=== PATIENT | female | born 1995 | race Caucasian/White ===

== ENCOUNTER 2016-12-08 18:55 | Outpatient (CLI) | payer OTHER ==
[~2016-12-08] VITALS: Ht 160 cm; Wt 51.4 kg
[~2016-12-08 18:55] MED LIST: IBUP-1050 PO; LEVO50TA PO
[2016-12-08] MEDS ORDERED: PRENTAB26 PO (19:48)
[2016-12-08 20:02] LABS: URINE APPEARANCE CLEAR (CLEAR); URINE BILIRUBIN NEG (NEG); URINE COLOR YELLOW; URINE EPITHELIAL CELL AUTO >30 /lpf (0-5); URINE NITRITE NEG (NEG); URINE SPECIFIC GRAVITY 1.018 (1.000-1.030); UROBILINOGEN NEG (NEG); ZZUR CULT IF INDIC CLEAN CATCH YES
[2016-12-08 20:05] LABS: MANUAL MICROSCOPIC REQUIRED? NO; REVIEW REQ? NO
--- NOTE | 2016-12-08 20:17 | DIAGNOSTIC IMAGING REPORT ---
LIMITED ULTRASOUND CLINICAL HISTORY: . Pelvic pressure. Evaluate cervical length COMPARISON STUDY: No previous studies for comparison. FINDINGS: A single live intrauterine gestation was visualized. The fetus in cephalic presentation. The heart rate is 142. The femur measured 19 mm corresponding assessment a postmenstrual age of 15 weeks and 5 days. The BPD measured 32 mm corresponding to an estimated postmenstrual age of 16 weeks and 1 day. The placenta was anterior and appeared within normal limits. The maternal cervix measured 4.2 cm with trace funneling. IMPRESSION: 1. Single live fetus in cephalic presentation. The estimated postmenstrual age is 15 weeks 6 days +/- 8 days 2. Anterior placenta 3. The maternal cervical length was 4.2 cm. There was trace funneling. Electronically signed by: Clint Nair M.D. 12/08/2016 8:16 PM Dictated Date/Time: 12/08/2016 8:13 PM
[2016-12-08 20:26] VITALS: Ht 160 cm; Wt 51.4 kg
[2016-12-08] MEDS ORDERED: NITR1CAP16 PO (20:40)
--- NOTE | 2016-12-08 20:40 | Discharge Instructions ---
Discharge Instructions Admission Reason for Admission: Check Cramping Discharge Discharge Diagnosis / Problem: pelvic pressure Discharge Goals Goal(s): Continuing OB care Activity Recommendations Activity Limitations: resume your previous activity ACTIVITY RECOMMENDATIONS: See Labor Sheet. SPECIAL CARE INSTRUCTIONS: Call Doctor if: * Regular contractions every 5 minutes or greater than contractions in one hour. * Bleeding * Water breaks or is leaking * Decreased movement * Fever >100.4 degrees F * Pain not relieved by routine measures or pain medication ordered. FOLLOW UP VISIT: Return to Labor and Delivery on for /call for appointment time . Follow-up Visit with: When: . Current Hospital Diet Patient's current hospital diet: Discharge Diet Recommended Diet: Regular Diet Pending Studies Studies pending at discharge: no Medical Emergencies . Who to Call and When: Medical Emergencies: If at any time you feel your situation is an emergency, please call 911 immediately. . Non-Emergent Contact Non-Emergency issues call your: Specialist . . "Provider Documentation" section prepared by Andrea Ni. VTE Core Measure Inpt VTE Proph given/why not?: Treatment not indicated
[2017-05-08] MEDS ORDERED: MTR600X PO (06:49)
== END 2016-12-08 21:10 | disposition home or self-care (01) ==
LOC: C.LD 18:55 → C.OPB 18:55
PROVIDERS: ATTEND Obstetrics & Gynecology
DX: O26.892 Other specified pregnancy related conditions, second trimester (principal); R10.2 Pelvic and perineal pain; Z3A.19 19 weeks gestation of pregnancy

== ENCOUNTER 2017-05-06 03:01 | Inpatient (IN) | payer OTHER ==
[~2017-05-06] VITALS: Ht 160 cm; Wt 66.7 kg
[~2017-05-06 03:01] MED LIST changes: -IBUP-1050 PO; -LEVO50TA PO; +PRENTAB26 PO
[2017-05-06 04:03] VITALS: Ht 160 cm; Wt 66.7 kg
[2017-05-06] MEDS ORDERED: LACTATED RINGER'S 1000ML 1,000 ML IV PRN ×2 (04:05→04:06)
[2017-05-06] MEDS ORDERED: LACTATED RINGER'S 1000ML 1,000 ML IV SCH ×2 (04:05→04:06)
[2017-05-06] MEDS ORDERED: CALCIUM CARBONATE 500 MG CHEWABLE PO PRN (04:15)
--- NOTE | 2017-05-06 04:22 | Progress Note ---
Progress Note Date of Service May 06, 2017. Progress Note Admit Note 21 W F P1001 at 37.1 wks with SROM clear fluid this AM. Patient is planning TOLAC. First was done for breech presentation. Has history of Herpes and is on Valtrex. No lesions now. Has been followed for IUGR by MFM. Patient presents to L&D grossly rupturede with clear fluid and elisa. Cervix is now 1-2/85/-1/vertex. GBS is negative. No bleeding. FHT Cat 1. Will admit in labor for TOLAC.
[2017-05-06 05:03] LABS: MEAN CELL VOLUME 86.6 fL (80-100); MEAN CORPUSCULAR HEMOGLOBIN 28.7 pg (25-34); MEAN CORPUSCULAR HGB CONC 33.1 g/dl (32-36); MEAN PLATELET VOLUME 11.4 fL (7.4-10.4); PLATELET COUNT 196 K/uL (130-400); RED BLOOD COUNT 4.04 M/uL (4.2-5.4); WHITE BLOOD COUNT 13.37 K/uL (4.8-10.8)
--- NOTE | 2017-05-06 05:24 | HISTORY & PHYSICAL EXAMINATION ---
DATE OF ADMISSION: 05/06/2017 REASON FOR ADMISSION: Term in labor, prior section. HISTORY OF PRESENT ILLNESS: The patient is a 21-year-old white female, para 1-0-0-1 at 37 weeks and 1 day, admitted with spontaneous rupture of membranes, in active labor. She has a prior for breech, desiring a trial of labor after . CURRENT MEDICAL HISTORY: Includes a history of herpes for which she is on Valtrex, there are no active lesions. She has a history of IUGR with this baby and prior baby and has been followed by MFM. Her GBS is negative. Her cervix is currently 1 to 2, 85%, -1, vertex presentation. GBS is negative. The heart tone is category 1. There is no active bleeding. PAST MEDICAL HISTORY: Positive for depression with no medication, herpes, prior IUGR prior abnormal Pap, hypothyroidism, posttraumatic stress disorder and chronic low back pain. PAST SURGICAL HISTORY: Positive for a prior for breech. ALLERGIES: LATEX, AUGMENTIN AND PERCOCET.. MEDICATIONS: vitamins and Valtrex. FAMILY HISTORY: Noncontributory. REVIEW OF SYSTEMS: Negative. SOCIAL HISTORY: Denies smoking, alcohol or drug use. PHYSICAL EXAMINATION: HEENT: Within normal limits. LUNGS: Clear to auscultation. COR: Regular rate and rhythm. ABDOMEN: Soft, nontender, gravid. EXTREMITIES: Within normal limits. No edema. NEUROLOGICAL: Intact. ASSESSMENT: Term . Desiring trial of labor after section.
[2017-05-06] MEDS ORDERED: EpHEDrine SULFATE INJ 50 MG/ML AMP ONE (07:09)
[2017-05-06] MEDS ORDERED: BUPIVACAINE 0.25% 30 ML VIAL ONE (07:09)
[2017-05-06] MEDS ORDERED: FENTANYL CITRATE INJ 50 MCG/1 ML 2 ML VIAL ONE (07:10)
[2017-05-06] MEDS ORDERED: FENTANYL 2MCG/ML ROPIV 1.25MG/ML 100ML BAG EPI ONE (07:10)
[2017-05-06] MEDS ORDERED: LACTATED RINGER'S 1000ML 500 ML IV PRN (07:12)
[2017-05-06] MEDS ORDERED: NALOXONE HCL INJ 1 MG in SODIUM CHLORIDE 0.9% 1000ML 1,000 ML IV PRN (07:12)
[2017-05-06] MEDS ORDERED: NALBUPHINE HCL INJ 10 MG/ML AMP IV PRN (07:15)
[2017-05-06] MEDS ORDERED: EpHEDrine SULFATE INJ 50 MG/ML AMP IV PRN (07:15)
[2017-05-06] MEDS ORDERED: ONDANSETRON INJ 2 MG/ML 2 ML VIAL IV PRN (07:15)
[2017-05-06] MEDS ORDERED: NALOXONE HCL INJ 0.4 MG/1 ML VIAL/CARP IV PRN (07:15)
[2017-05-06] MEDS ORDERED: DiphenhydrAMINE HCL 50 MG/ML VIAL IV PRN (07:15)
[2017-05-06] MEDS ORDERED: FENTANYL 2MCG/ML ROPIV 1.25MG/ML 100ML BAG EPI PRN (07:15)
[2017-05-06] MEDS ORDERED: OXYTOCIN 30 UNITS/500ML NSS IV ONE (08:16)
[2017-05-06] MEDS ORDERED: LANOLIN OINT EXT PRN ×2 (09:00)
[2017-05-06] MEDS ORDERED: ACETAMINOPHEN 325 MG TAB PO PRN (09:00)
[2017-05-06] MEDS ORDERED: OXYTOCIN 30 UNITS/500ML NSS IV PRN (09:00)
[2017-05-06] MEDS ORDERED: SUPERCREAM 0.870 % 15GM JAR EXT PRN (09:00)
[2017-05-06] MEDS ORDERED: BENZOCAINE 20% AER SPR 82.5 GM CAN EXT PRN (09:00)
[2017-05-06] MEDS ORDERED: HYDROCORTISONE ACETATE 25 MG SUPP PR PRN (09:00)
[2017-05-06] MEDS ORDERED: DIPHTHERIA/TETANUS/PERTUSSIS 0.5 ML SYR/VIAL IM. ONE (09:00)
--- NOTE | 2017-05-06 09:32 | Anesthesia Procedure Note ---
Anesthesia Epidural Removal Nt Date & Time May 06, 2017 at 09:31 Vital Signs Pain Intensity: 2.0 Notes Mental Status: alert / awake / arousable, participated in evaluation Nausea / Vomiting: adequately controlled Pain: adequately controlled Airway Patency, RR, SpO2: stable & adequate BP & HR: stable & adequate Hydration State: stable & adequate Neuraxial Anesthesia: was administered, sensory block is resolving Anesthetic Complications: no major complications apparent, pt satisfied with anesthetic care Epidural: removed without complications, with tip intact
[2017-05-06 12:10] VITALS: BP 107/61; PULSE 71; TEMP 36.6
[2017-05-06] MEDS: IBUPROFEN 600 MG TAB PO PRN ×2 (15:38→19:16)
[2017-05-06 15:42] VITALS: BP 111/66; PULSE 64; TEMP 36.3; O2SAT 99
--- NOTE | 2017-05-06 16:02 | Progress Note ---
Progress Note Date of Service May 06, 2017. Progress Note DELIVERY NOTE: DATE OF DELIVERY: 05/06/17 TIME OF DELIVERY: 0835 DELIVERY OF PLACENTA: 0836 DELIVERY SUMMARY: Patient is a at 37 weeks gestation who was admitted to L& D for SROM at 0215 on the morning of 05/06/17. She has a history of a primary section with her first due to breech presentation and is requesting a trial of labor. She received an epidural for anesthesia. She reached complete dilation at 0813 with the urge to push. She pushed to delivery at 0835. She delivered a viable female infant in the AMANDA position to an intact perineum. Baby was placed on the patients abdomen, cord was clamped x 2 and cut. APGARs were 8 at 1 minute and 9 at 5 minutes. Cord blood was obtained and an intact placenta with a 3 VC was delivered at 0836. Oxytocin infusion was then began. The lower uterine segment and vagina were cleared of any blood clots and debris. Exploration of the perineum noted a right periurethral laceration which was repaired with 3-0 Vicryl suture in a continuous running fashion. Excellent hemostasis was noted. No other lacerations seen. All sponge, instrument and needle counts were found to be correct x 2. EBL 250 cc. Patient tolerated the delivery well and was in recovery with stable vital signs.
[2017-05-06] MEDS: DOCUSATE SODIUM 100 MG CAP PO SCH (19:15)
[2017-05-06 19:30] VITALS: BP 105/58; PULSE 55; TEMP 36.5
[2017-05-06 23:55] VITALS: BP 113/64; PULSE 68; TEMP 36.7; O2SAT 98
[2017-05-07 03:20] VITALS: BP 107/63; PULSE 70; TEMP 37; O2SAT 98
[2017-05-07 07:25] VITALS: BP 112/74; PULSE 72; TEMP 36.5
[2017-05-07] MEDS: IBUPROFEN 600 MG TAB PO PRN ×3 (07:26→19:09)
[2017-05-07] MEDS: PRENATAL VITAMIN TAB PO SCH (08:54)
[2017-05-07] MEDS: FERROUS SULFATE 325 MG TAB PO SCH (08:54)
[2017-05-07] MEDS: DOCUSATE SODIUM 100 MG CAP PO SCH ×2 (08:54→20:01)
--- NOTE | 2017-05-07 11:22 | OB/GYN Progress Note ---
[employer] CRIME PREVENTION Progress Note Date of Service May 07, 2017. Subjective conversation w/ patient, physical exam Ambulation: ambulating normally Voiding: no voiding problems Passing Gas: Yes Diet Tolerance: Regular Diet Lochia: Moderate Review of Systems Constitutional: No fever, No chills, No sweats, No weight loss, No weakness, No fatigue, No problem reported Respiratory: No cough, No sputum, No wheezing, No shortness of breath, No dyspnea on exertion, No dyspnea at rest, No hemoptysis, No problem reported Cardiac: No chest pain, No orthopnea, No PND, No edema, No claudication, No palpitations, No problem reported Breast: No see HPI, No breast lump, No change in shape, No nipple discharge, No breast pain, No problem reported Abdomen: No pain, No nausea, No vomiting, No diarrhea, No constipation, No GI bleeding, No problem reported Female : No see HPI, No dysuria, No urinary frequency, No hematuria, No incontinence, No abnormal vaginal bleeding, No vaginal discharge, No problem reported Objective Vital Signs Date Time Temp Pulse Resp B/P (MAP) Pulse Ox O2 Delivery O2 Flow Rate FiO2 05/07/17 07:25 36.5 72 20 112/74 (87) Room Air 05/07/17 07:25 Room Air 05/07/17 03:20 37.0 70 18 107/63 (78) 98 Room Air 05/06/17 23:55 36.7 68 20 113/64 (80) 98 Room Air 05/06/17 23:55 Room Air 05/06/17 19:30 36.5 55 20 105/58 (74) Room Air 05/06/17 15:42 36.3 64 20 111/66 (81) 99 Room Air 05/06/17 15:30 Room Air 05/06/17 12:10 Room Air 05/06/17 12:10 36.6 71 20 107/61 (76) Room Air Physical Exam General Appearance: WELL-APPEARING, WD/WN, NO APPARENT DISTRESS Respiratory/Chest: chest non-tender, lungs clear, normal breath sounds, no respiratory distress, no accessory muscle use Cardiovascular: regular rate, rhythm, no edema, no gallop, no JVD, no murmur Abdomen: normal bowel sounds, non tender, soft, no organomegaly, no pulsatile mass Fundus: Firm Extremities: normal range of motion, non-tender, normal inspection, no pedal edema, no calf tenderness Laboratory Results Last 24 Hours Test 05/07/17 07:49 Hemoglobin 11.8 g/dL Hematocrit 36.0 % Assessment and Plan Day Number: 1 Continue Routine Care: Succesful day #1 pt doing well Anticipate disch tomorrow
[2017-05-07 15:30] VITALS: BP 114/63; PULSE 63; TEMP 37
[2017-05-07] MEDS ORDERED: BISACODYL 5 MG TABEC PO SCH (20:00)
[2017-05-08] VITALS: BP 105/56; PULSE 67; TEMP 36.8
[2017-05-08] MEDS ORDERED: MTR600X PO (06:49)
--- NOTE | 2017-05-08 06:50 | Discharge Instructions ---
Discharge Instructions Date of Service May 08, 2017. Admission Reason for Admission: Term With Prior Discharge Discharge Diagnosis / Problem: postprtum Discharge Goals Goal(s): Routine recovery after delivery Activity Recommendations Activity Limitations: resume your previous activity ACTIVITY RECOMMENDATIONS: * Gradual return to full activity over the next 2-3 weeks. * No lifting - nothing heavier than baby over the next 2-3 weeks. * Do not engage in vigorous exercise, sexual activity or sports until cleared by your physician. * Do not drive or operate any motorized equipment until cleared by your physician. * You may shower/bathe daily. BREAST CARE: If you are not breast feeding: * Wear a supportive bra 24 hours a day for one to two weeks. * Avoid stimulating your breasts and nipples as much as possible during the first few weeks after delivery. * When taking a shower, have the warm water hit your back, not breasts. * When your breasts feel full, apply ice packs. Usually three to four times a day helps ease the discomfort. * Take a mild pain medication (Tylenol/Motrin) when you are uncomfortable. If breast feeding: * Use breast milk to lubricate nipples. Lansinoh cream may be used for sore nipples. You do not need to remove cream prior to breast feeding. If using a different brand of cream, check the label for directions regarding removal of cream prior to nursing. * Wear a supportive bra. * If having problems with breasts or breast feeding, call a market research consultant or your health care provider. EPISIOTOMY CARE: After delivery, if you have an episiotomy (stitches), the following steps will ease discomfort and aid healing. * For the first 24 hours after delivery, place ice packs next to your episiotomy to help reduce swelling. * After the first 24 hour-period, sitz baths, either portable or in the tub, are suggested. A shower with a shower arm sprayed over the episiotomy may be comforting. * Mei care should be done after each voiding and bowel movement. Squirt warm water from a plastic bottle over the perineum (region of the body between the anus and urinary opening) and pat dry. * Use Dermoplast to ease discomfort. Shake container. [place] directly over the episiotomy. * Place a Tucks on a clean sanitary pad next to your episiotomy. OVER THE COUNTER MEDICATION: * For discomfort or pain, you may use Acetaminophen (Tylenol), Ibuprofen (Advil ), or Naproxen (Aleve) following the package directions. * For constipation you may use Colace following the package directions. SPECIAL CARE INSTRUCTIONS: When you are discharged from the hospital, it is important for you to follow the instructions listed below: * During the first week at home, you should be able to care for yourself and your baby. In addition, the usual light household activities are encouraged. * Limit your activities to the way you feel. Do not try to clean the house or move furniture. Be sensible. * If you actively engage in sports and have done so up until the time of your delivery, you may resume these activities as soon as you feel able. This may take up to one month or even longer. Use good judgment. * Continue to take your vitamins for at least six weeks after the of your baby. * Your diet need not be limited unless you were on a special diet before your delivery. Breast-feeding mothers need around 2500 calories per day and at least 64-80 ounces of fluid per day (8 to 10 glasses). * You should eat foods from the four major food groups. Crash diets or fad diets are to be avoided. Eating lean meats, fresh fruits and vegetables, low-fat dairy products, high fiber foods and a regular exercise program, will help you get back to your pre- weight without putting your health at risk. * Constipation is sometimes a problem after delivery. Take a mild laxative as needed. If breast feeding, Milk of Magnesia is acceptable to use. You may use a suppository or Fleets enema if no episiotomy. * A daily shower or tub bath is suggested. Be sure to thoroughly and gently dry the perineum. * A bloody vaginal discharge will usually continue until around four weeks post . A small amount of bleeding may continue for as long as six weeks. Vaginal discharge changes from the bright red bleeding after delivery to pink then brownish and finally yellowish-pink before becoming white and disappearing. * Bleeding may increase with activity. Your first period may come in 4-8 weeks. If you are breast feeding, your period may be delayed even longer. * [place] (sex) can begin whenever both you and your partner feel comfortable and do not have any form of genital infection. It is recommended that you wait until after your return appointment and discuss with your physician. If you have questions, please talk to your health care practitioner. A condom should be used to prevent infection and . * Foreplay, gentle intercourse and lubrication is very important the first several times to prevent pain. A water-based lubricant such as K-Y jelly or Astroglide may be used. * Tampons may be used six weeks after delivery. * Douching should be avoided for 6 weeks after delivery. * If you have RH negative blood and your baby is RH positive, you will receive RHOGAM by injection prior to discharge. The nurse will give you a card to keep with you that has the date and place that you received RHOGAM after delivery. * During your care, you had a Rubella screen done to check for the presence of rubella antibodies in your blood. If your test was negative, you will receive a Rubella vaccine prior to discharge. This vaccine may cause a fever, soreness at the injection site and flu-like symptoms. If these symptoms persist, notify your health care practitioner. is not advised for three months after a Rubella vaccine. There is a higher chance of having a baby with defects if conceived within three months of getting the vaccine. * If you were discharged 24 hours from delivery or before 48 hours: Visiting nurses will come to your home 48 hours after discharge to assess you and your baby. The visiting nurse will meet with you while you are in the hospital to arrange a time and get directions to your home. * Verbalizes understanding of car seat law as reviewed with patient nursing. * Car Seat hand-out given and reviewed with patient by nursing. * Shaken baby information reviewed with patient by nursing. Call you doctor if: * Heavy bleeding (saturating several pads an hour) or passing clots the size of your fist. * A fever >101 degrees F (38.3 degrees C) on two occasions four hours apart and/or chills. * Unusual pain in the pelvic or vaginal areas. * "Baby Blues" lasting longer than two weeks. If you have any questions or concerns, call your health care practitioner at . FOLLOW-UP VISIT: * Please call the office at to schedule a 6 week examination. It is important you keep this appointment. * It is important for you to make arrangements for either yearly or twice yearly check-ups thereafter. . Current Hospital Diet Patient's current hospital diet: Regular OB Diet Discharge Diet Recommended Diet: Regular Diet Pending Studies Studies pending at discharge: no Medical Emergencies . Who to Call and When: Medical Emergencies: If at any time you feel your situation is an emergency, please call 911 immediately. . Non-Emergent Contact Non-Emergency issues call your: Specialist . . "Provider Documentation" section prepared by Andrea Ni. . VTE Core Measure Inpt VTE Proph given/why not?: Treatment not indicated
[2017-05-08] MEDS ORDERED: BISACODYL 10 MG SUPP PR PRN (07:00)
[2017-05-08 07:19] LABS: MEAN CELL VOLUME 87.1 fL (80-100); MEAN CORPUSCULAR HEMOGLOBIN 28.6 pg (25-34); MEAN CORPUSCULAR HGB CONC 32.9 g/dl (32-36); MEAN PLATELET VOLUME 11.2 fL (7.4-10.4); PLATELET COUNT 195 K/uL (130-400); RED BLOOD COUNT 4.02 M/uL (4.2-5.4); WHITE BLOOD COUNT 9.17 K/uL (4.8-10.8)
[2017-05-08] MEDS: DOCUSATE SODIUM 100 MG CAP PO SCH (08:23)
[2017-05-08] MEDS: FERROUS SULFATE 325 MG TAB PO SCH (08:23)
[2017-05-08] MEDS: PRENATAL VITAMIN TAB PO SCH (08:23)
[2017-05-08 08:27] VITALS: BP 124/72; PULSE 68; TEMP 36.6; O2SAT 99
[2017-05-08 08:42] VITALS: BP 124/72; PULSE 68; TEMP 36.6; O2SAT 99
[2017-05-08 12:30] VITALS: BP_DIAS 72; PULSE 68; TEMP 36.6
== END 2017-05-08 12:35 | disposition home or self-care (01) | DRG 774 ==
LOC: C.LD 03:01 → C.OPB 03:01 → C.LD 04:08 → C.OPB 04:10 → C.OBG 12:19
PROVIDERS: ADMIT Obstetrics & Gynecology; ATTEND Obstetrics & Gynecology
PROC: 10E0XZZ Delivery of Products of Conception, External Approach (ICD-10-PCS; principal; 2017-05-06)
DX: O98.52 Other viral diseases complicating childbirth (principal); O71.82 Other specified trauma to perineum and vulva; O34.219 Maternal care for unspecified type scar from previous cesarean delivery; Z37.0 Single live birth; Z3A.37 37 weeks gestation of pregnancy; Z79.899 Other long term (current) drug therapy